=== PATIENT | female | born 1955 | race Caucasian/White ===

== ENCOUNTER 2021-01-20 14:00 | Outpatient (RCR) | payer MEDICARE, SELFPAY | END 2021-01-20 16:00 | LOC: PUL 14:00 | PROVIDERS: Referring Provider Internal Medicine Pulmonary Disease; Visit Provider Internal Medicine Pulmonary Disease | DX: J84.113 Idiopathic non-specific interstitial pneumonitis (principal) | CPT/HCPCS: G0237; G0238 ==